=== PATIENT | male | born 1970 | race Two or more races ===

== ENCOUNTER 2019-08-28 13:38 | Emergency (ER) | payer BC, OTHER ==
[2019-08-28 14:03] VITALS: BP 130/91
[2019-08-28 16:42] LABS: Influenza A Molecular Negative (Negative); Influenza B Molecular Negative (Negative)
--- NOTE | 2019-08-28 17:22 | UC ---
General HPI - HPI Summary HPI Summary: 49 yo BM p/w upper back pains associated with chills, h/[place] came back about 5 days ago. Denies cough, SOB - History of Current Complaint Chief Complaint: UCGeneralIllness Stated Complaint: FEVER Time Seen by Provider: 08/28/19 16:08 Hx Obtained From: Patient Hx From Patient Unobtainable Due To: Other Onset/Duration: Sudden Onset Onset Severity: Mild Current Severity: Moderate Pain Intensity: 3 - Allergy/Home Medications Allergies/Adverse Reactions: Allergies Allergy/AdvReac Type Severity Reaction Status Date / Time No Known Allergies Allergy Verified 08/28/19 14:04 Home Medications: Home Medications Atorvastatin* [Lipitor 10 MG*] 10 mg PO DAILY 03/03/16 [History Confirmed ] Aspirin 81 mg CHEW TAB* 1 tab PO DAILY 08/28/19 [History Confirmed 08/28/19] Naproxen [Naproxen 500 mg tab] 500 mg PO BID 10 Days #20 tablet 08/28/19 [Rx] PMH/Surg Hx/FS Hx/Imm Hx Previously Healthy: Yes Endocrine History: Dyslipidemia - Surgical History Surgical History: None - Social History Alcohol Use: None Substance Use Type: None Smoking Status (MU): Never Smoked Tobacco Have You Smoked in the Last Year: No - Immunization History Most Recent Influenza Vaccination: n/a Most Recent Tetanus Shot: unk Most Recent Pneumonia Vaccination: n/a Review of Systems All Other Systems Reviewed And Are Negative: Yes Physical Exam - Summary Physical Exam Summary: Gen: NAD Eye Exam: Normal Eyes: Positive: Conjunctiva Clear ENT: Normal ENT inspection Neck: Supple Respiratory: Lungs clear, Normal breath sounds. Negative: Crackles, Rhonchi, Stridor, Wheezing Cardiovascular Exam: Normal, RRR, S1, S2 Abdomen: NT/ND Musculoskeletal Exam: mile mylagias on upper back Neurological Exam: Normal Psychological Exam: Normal Skin Exam: Normal Vital Signs: Initial Vital Signs Temp 36.4 C 08/28/19 13:57 Pulse 66 08/28/19 13:57 Resp 16 08/28/19 13:57 BP 130/91 08/28/19 13:57 Pulse Ox 100 08/28/19 13:57 Course/Dx - Diagnoses Provider Diagnosis: Viral syndrome, Myalgia Discharge ED - Sign-Out/Discharge Documenting (check all that apply): Patient Departure All imaging exams completed and their final reports reviewed: No Studies - Discharge Plan Condition: Stable Disposition: HOME Prescriptions: Naproxen [Naproxen 500 mg tab] 500 mg PO BID 10 Days #20 tablet Patient Education Materials: Viral Syndrome (ED) Referrals: Hyun Kathleen MD [Primary Care Provider] - - Billing Disposition and Condition Condition: STABLE Disposition: Home
== END 2019-08-28 17:55 | disposition home or self-care (01) ==
LOC: UCEAST 13:38
DX: B34.9 Viral infection, unspecified (principal); M79.10 Myalgia, unspecified site; M54.89 Other dorsalgia; E78.5 Hyperlipidemia, unspecified; Z79.899 Other long term (current) drug therapy; Z79.82 Long term (current) use of aspirin
CPT/HCPCS: 87651; 99202; G0463